=== PATIENT | female | born 1965 | race Two or more races ===

== ENCOUNTER → 2025-04-13 | Emergency (ER) | payer OTHER ==
[~2025-04-13] VITALS: Ht 154.9 cm; Wt 72.6 kg
[~2025-04-13] MED LIST: FAMOTIDINE/PF 20 MG/2 ML VIAL IV PUSH STA; FAMOTIDINE/PF 20 MG/2 ML VIAL ONE; SYNTHROID50 MCG
[2025-04-13 18:52] LABS: BASO % 0.6 % (0.1-1.2); EOS # 0.11 (0.04-0.54); EOS % 1.0 % (0.7-7.0); LYMPH # 2.81 (1.18-3.74); LYMPH % 24.6 % (19.3-53.1); MEAN PLATELET VOLUME 9.20 fl (9.4-12.4); MONO # 0.61 (0.24-0.82); MONO % 5.3 % (4.7-12.5); NEUT # 7.79 (1.56-6.13); NEUT % 68.2 % (34.0-71.1); RED CELL DISTRIBUTION WIDTH 12.4 % (11.6-14.4)
[2025-04-13 19:36] LABS: ALT/SGPT 20.0 U/L (12-78); AST/SGOT 14.0 U/L (15-37); BILIRUBIN TOTAL 0.32 mg/dL (0.3-1.2); BUN CREA RATIO 16.0 (7.0-25.0); CREATININE SERUM 0.85 mg/dL (0.55-1.02); GFR 68.94; GLOBULINA 3.2 G/DL (2.4-3.5); GLUCOSE FASTING 87.0 mg/dL (65-100); OSMOLALITY SERUM 287.0 MOSM/KG (275-295)
== END | disposition home or self-care (01) ==
LOC: ER 15:25
PROVIDERS: General Practice
DX: K29.60 Other gastritis without bleeding (principal); R07.89 Other chest pain